=== PATIENT | male | born 1990 | race African-American/Black ===

== ENCOUNTER 2022-03-12 10:03 | Emergency (ER) | payer MEDICAID ==
[~2022-03-12] VITALS: Ht 170.2 cm; Wt 75.0 kg
[2022-03-12] MEDS ORDERED: ONDANSETRON HCL 4MG/2ML INJ IV STA (12:14)
[2022-03-12] MEDS ORDERED: MORPHINE SULFATE 4 MG/ML CPJ (NOT FOR IM USE) IV STA (12:14)
[2022-03-12] MEDS ORDERED: MORPHINE SULFATE 4 MG/ML CPJ (NOT FOR IM USE) IV ONE (12:15)
[2022-03-12] MEDS ORDERED: ETOMIDATE 2MG/ML 10ML VIAL IV ONE (12:15)
[2022-03-12] MEDS ORDERED: SODIUM CHLORIDE 0.9% 1,000 ML IV ONE (12:15)
[2022-03-12] MEDS ORDERED: MIDAZOLAM HCL 2 MG/2 ML VIAL ONE (13:13)
[2022-03-12] MEDS ORDERED: KETAMINE HCL 50 MG/ML 10ML IV ONE (13:15)
[2022-03-12] MEDS ORDERED: MIDAZOLAM HCL 2 MG/2 ML VIAL IV ONE (13:15)
[2022-03-12 14:00] VITALS: BP 131/90
[2022-03-12] MEDS ORDERED: IBUP-2028 MT (14:44)
== END 2022-03-12 15:53 | disposition home or self-care (01) ==
LOC: ER 10:03
DX: S43.005A Unspecified dislocation of left shoulder joint, initial encounter (principal); M24.412 Recurrent dislocation, left shoulder; Z98.890 Other specified postprocedural states; X50.9XXA Other and unspecified overexertion or strenuous movements or postures, initial encounter; Y93.89 Activity, other specified; Y92.89 Other specified places as the place of occurrence of the external cause; Y99.8 Other external cause status
CPT/HCPCS: 23650; 73030; 96361; 96374; 99152; 99285; J2250; J2270; J2405; J3490; J7030; Z7610; L3670